=== PATIENT | male | born 1960 | race Caucasian/White ===

== ENCOUNTER 2017-11-06 23:36 | Inpatient (IN) | payer SELFPAY ==
[~2017-11-06] VITALS: Ht 177.8 cm; Wt 88.5 kg
[2017-11-06] MEDS ORDERED: SODIUM CHLORIDE 0.9% 1,000 ML IV ONE (23:52)
[2017-11-07] VITALS (9 sets, daily range): BP systolic 92–139; BP diastolic 44–98
[2017-11-07] MEDS ORDERED: SODIUM CHLORIDE 0.9% 1,000 ML IV ONE (00:38)
[2017-11-07 00:41] LABS: BASOPHILS % 1.3 % (0.0-2.0); EOSINOPHILS % 2.5 % (0.0-5.0); HEMATOCRIT. 41.9 % (42.0-52.0); HEMOGLOBIN. 13.9 g/dL (14.0-18.0); LYMPHOCYTES % 18.6 % (20.0-50.0); MEAN CORPUSCULAR HEMOGLOBIN 31.8 pg (28.0-32.0); MEAN CORPUSCULAR VOLUME 95.7 fL (80.0-94.0); MEAN PLATELET VOLUME 9.9 fl (7.4-10.4); MONOCYTES % 9.7 % (2.0-8.0); NEUTROPHILS % 67.9 % (40.0-76.0); PLATELET 160 x1000/uL (130-400); RED BLOOD CELL COUNT 4.38 mill/uL (4.7-6.1); RED CELL DISTRIBUTION WIDTH 15.7 % (11.6-14.6)
[2017-11-07 00:47] LABS: CHLORIDE 97 mEq/L (98-107)
[2017-11-07 00:49] LABS: INR 1.7; PROTHROMBIN TIME 17.2 sec (9.1-11.1)
[2017-11-07 00:53] LABS: ETHANOL BLOOD < 10 mg/dL
[2017-11-07] MEDS ORDERED: ASPIRIN 325MG TABLET PO NR (01:15)
[2017-11-07] MEDS ORDERED: POTASSIUM CHLORIDE 20MEQ TABLET SR PO NR (01:15)
[2017-11-07 01:23] LABS: CLARITY URINE CLEAR (CLEAR); COLOR URINE DARK YELLOW (YELLOW); KETONES URINE NEGATIVE (NEGATIVE); LEUKOCYTE ESTERASE URINE NEGATIVE (NEGATIVE); NITRITE URINE NEGATIVE (NEGATIVE); OCCULT BLOOD URINE NEGATIVE (NEGATIVE); PH URINE 5.5 (4.5-8.0); PROTEIN URINE 1+ (NEGATIVE); SPECIFIC GRAVITY URINE 1.035 (1.005-1.030)
[2017-11-07 01:43] LABS: *AMPHETAMINES SCREEN URINE PRESUMTIVE POSITIVE (NEGATIVE); *BARBITURATES SCREEN URINE NEGATIVE (NEGATIVE); *BENZODIAZEPINES SCREEN URINE NEGATIVE (NEGATIVE); *COCAINE SCREEN URINE NEGATIVE (NEGATIVE); METHADONE URINE SCREEN NEGATIVE (NEGATIVE)
[2017-11-07 01:44] LABS: CANNABINOID URINE SCREEN NEGATIVE (NEGATIVE); OPIATES URINE SCREEN NEGATIVE (NEGATIVE); PHENCYCLIDINE URINE SCREEN NEGATIVE (NEGATIVE)
[2017-11-07] MEDS ORDERED: SODIUM CHLORIDE 0.9% 1000ML BAG (SEPSIS BOLUS) IV ONE (02:00)
[2017-11-07] MEDS ORDERED: DILTIAZEM HCL 30MG TABLET PO ONE (02:00)
[2017-11-07] MEDS ORDERED: METOPROLOL TARTRATE 5MG/5ML VIAL IV SCH (02:45)
[2017-11-07] MEDS ORDERED: DILTIAZEM HCL 5MG/ML 5ML VIAL IV ONE (03:15)
[2017-11-07] MEDS ORDERED: LORAZEPAM 0.5MG TABLET PO PRN (06:45)
[2017-11-07] MEDS ORDERED: FUROSEMIDE 40MG/4ML VIAL IVP NR (09:30)
[2017-11-07 09:47] LABS: BG CARBOXYHEMOGLOBIN 0.9 % (0.5-1.5); BG DEOXYHEMOGLOBIN 9.1 % (0.0-5.0); BG FRACTION INSPIRED OXYGEN 21; BG HCO3 ACT 23.3 mmol/L (22.0-26.0); BG METHEMOGLOBIN 0.2 % (0.0-1.5); BG OXYGEN SATURATION 90.8 % (92.0-98.5); BG OXYHEMOGLOBIN 89.8 % (94.0-97.0); BG PCO2 37.6 mmHg (35.0-45.0); BG SAMPLE SITE RIGHT BRACHIAL; BG TOTAL HEMOGLOBIN 14.1 g/dL (12.0-18.0); BG VENT MODE ROOM
[2017-11-07] MEDS ORDERED: ENOXAPARIN 100MG/ML SYR SUBCUT SCH (10:00)
[2017-11-07] MEDS ORDERED: KCL 20MEQ/100ML PREMIX 100 ML IV NR (10:30)
[2017-11-07 10:51] LABS: EOSINOPHILS % 0.8 % (0.0-5.0); HEMATOCRIT. 42.7 % (42.0-52.0); HEMOGLOBIN. 14.2 g/dL (14.0-18.0); LYMPHOCYTES % 13.4 % (20.0-50.0); MEAN CORPUSCULAR HEMOGLOBIN 31.9 pg (28.0-32.0); MEAN CORPUSCULAR VOLUME 95.8 fL (80.0-94.0); MEAN PLATELET VOLUME 9.9 fl (7.4-10.4); MONOCYTES % 10.7 % (2.0-8.0); NEUTROPHILS % 74.1 % (40.0-76.0); PLATELET 154 x1000/uL (130-400); RED BLOOD CELL COUNT 4.45 mill/uL (4.7-6.1); RED CELL DISTRIBUTION WIDTH 15.7 % (11.6-14.6)
[2017-11-07 11:02] LABS: CHLORIDE 100 mEq/L (98-107)
[2017-11-07 11:14] LABS: LDL CHOLESTEROL 56 mg/dL (5-100)
[2017-11-07 11:15] LABS: CREATINE KINASE 101 IU/L (39-308)
[2017-11-07 11:16] LABS: HDL CHOLESTEROL 58 mg/dL (40-59)
[2017-11-07] MEDS ORDERED: CLONIDINE 0.1MG TABLET PO PRN (13:15)
[2017-11-07] MEDS ORDERED: CLONIDINE 0.2MG TABLET PO PRN (13:15)
[2017-11-07] MEDS ORDERED: VERAPAMIL HCL 2.5 MG/1 ML 2ML VIAL IV PRN (13:15)
[2017-11-07] MEDS ORDERED: PANTOPRAZOLE SODIUM 40 MG/VIAL IV SCH (15:15)
[2017-11-07] MEDS ORDERED: DILTIAZEM HCL 60MG TABLET PO SCH (18:00)
[2017-11-07 19:26] LABS: AMMONIA 34 uMol/L (<32)
[2017-11-07 19:30] LABS: T4 FREE 1.08 ng/dL (0.76-1.46)
[2017-11-07 19:48] LABS: FOLIC ACID (FOLATE) SERUM >20 ng/mL ng/mL (>5.38)
[2017-11-07 19:51] LABS: HEPATITIS B SURFACE ANTIGEN NEGATIVE
[2017-11-07 20:00] LABS: VITAMIN B12 SERUM 1200 pg/mL (211-911)
[2017-11-07 20:20] LABS: HEPATITIS B CORE AB IGM NEGATIVE
[2017-11-07 20:21] LABS: HEPATITIS A AB IGM NEGATIVE (NEGATIVE)
== END 2017-11-07 20:41 | disposition left against medical advice (07) | DRG 201 ==
LOC: ER 23:36 → 5EST 11-07 02:07 → EDBEDREQ 11-07 02:10 → EDBEDREQSVC 11-07 02:10 → EDBEDREQTM 11-07 02:10 → ENRESERV 11-07 02:31
PROVIDERS: ADMIT Internal Medicine; ATTEND Internal Medicine
DX: I48.91 Unspecified atrial fibrillation (principal); D68.9 Coagulation defect, unspecified; E87.2 Acidosis; E16.2 Hypoglycemia, unspecified; I11.0 Hypertensive heart disease with heart failure; I50.9 Heart failure, unspecified; E78.00 Pure hypercholesterolemia, unspecified; E87.6 Hypokalemia; F17.210 Nicotine dependence, cigarettes, uncomplicated; J32.0 Chronic maxillary sinusitis; N28.9 Disorder of kidney and ureter, unspecified; R74.0 Nonspecific elevation of levels of transaminase and lactic acid dehydrogenase [LDH]; R09.89 Other specified symptoms and signs involving the circulatory and respiratory systems; F15.10 Other stimulant abuse, uncomplicated; F10.10 Alcohol abuse, uncomplicated; K70.9 Alcoholic liver disease, unspecified; E80.6 Other disorders of bilirubin metabolism; Z59.0 Homelessness; I25.2 Old myocardial infarction; Z79.899 Other long term (current) drug therapy; Z53.21 Procedure and treatment not carried out due to patient leaving prior to being seen by health care provider
CPT/HCPCS: 36415; 36600; 70450; 71045; 80048; 80053; 80061; 80305; 81003; 82140; 82375; 82550; 82607; 82746; 82805; 82962; 82977; 83036; 83605; 83690; 83735; 83880; 84439; 84443; 84481; 84484; 85025; 85610; 86705; 86709; 86803; 87040; 87340; 93005; 93306; 93970; 96374; 99291; G0482; J1650; J1940; J3480; J3490; J7030; J7050